=== PATIENT | male | born 1955 | race Caucasian/White ===

== ENCOUNTER → 2017-02-21 | Outpatient (CLI) | payer BC ==
[2016-05-12 11:29] VITALS: BP 138/76
[~2017-02-21] MED LIST: AMIO200T2 PO; CARV12.52 PO; CARV3.12 PO; CARV6.252 PO; CRESTOR40 MG PO; DRON400T PO; FURO40TA4 PO; GLUC100018 PO; LOSA25TA4 PO; MULT-246 PO; OMEG1CAP6 PO; REGADENOSON 0.4 MG/5 ML DISP.SYRIN. IV ONE; RIVA10TA PO; SPIR25TA PO
--- NOTE | 2017-02-21 12:54 | RAD ---
APPROVED REPORT Test Type: Pharmacological Stress Nurse/Tech: Makenzie Oneill R.N. Test Indications: chronic systolic heart failure Cardiac History: Hypertension, Family history, A fib, defib/PM Medications: See Electronic Medical Record Medical History: See Electronic Medical Record Resting ECG: Paced Resting Heart Rate: 76 bpm Resting Blood Pressure: 142/85mmHg Pretest Chest Pain: No chest pain Nurse/Tech Notes S1S2, lungs sound clear Consent: The procedure was explained to the patient in lay terms. Informed consent was witnessed. Brijesh eout was entered into [employer]. History and Stress Test performed by Makenzie Oneill R.N. Pharm. Details Pharmacologic stress testing was performed using 0.4mg per 5ml of regadenoson given intravenously ove r 7-10 seconds. Stress Symptoms Dyspnea POST EXERCISE Reason for Termination: Infusion complete Max HR: 109 bpm Max Blood Pressure: 152/86mmHg Blood Pressure response to exercise: Normal blood pressure response during stress. Chest Pain: No. Arrhythmia: No. ST Change: No. INTERPRETATION Stress EKG Conclusion: Baseline EKG showed ventricular paced rhythm. Nondiagnostic changes at peak st ress. No significant arrhythmias. Imaging Protocol IMAGE PROTOCOL: Rest Tc-99m/stress Tc-99m 1 day Rest: Stress: Viability: Radiopharm.Tc99m [id number] Sestamibi Dose12.5mCi 34mCi Duration 15min. 10min. Img Date 02/21/2017 02/21/2017 Inj-Img Teoh23xok. 60min. Rest Admin Site:IV - Left HandAdministrator:Salty Cohen RT (R)(N) Stress Admin Site: IV - Left HandAdministrator: Tomasa Tam RT (R)(N) STRESS DATA End Diast. Vol.163.0mlAv. Heart Rate79.0bpm End Syst. Vol.102.0mlCO Index BSA0.0L/min Myocardial Xsvz453.0gEject. Nrdytruh11.0% Stress Rates Pk. Fill Rate2.49EDV/secLVtime Pk. Fill 216.63msec Pk. Empty Rate2.50ESV/secLVtime Pk. Ggdgo027.38msec 07/30 Pk. Fill0.45EDV/sec Stress Scores Regional WT3.00Summed WT21.00 Regional WM1.00Summed WM22.00 LV Perfusion Scintigraphic images showed small fixed defect involving the apical wall with normal wall motion, pro bably attenuation artifact. No other fixed or reversible defects seen. Wall Motion Moderate left ventricle systolic dysfunction. Abnormal septal wall motion secondary to paced rhythm. Ejection fraction was calculated at 37%. LV Perf. Quant 17 Seg. SSS10.00 17 Seg. SRS13.00 17 Seg. SDS0.00 Stress Defect Extent (% LAD)51.30Rest Defect Extent (% LAD)56.30Rev. Defect Extent (% LAD)0.00 Stress Defect Extent (% LCX) 1.30Rest Defect Extent (% LCX)7.50Rev. Defect Extent (% LCX)0.00 Stress Defect Extent (% RCA)3.30Rest Defect Extent (% RCA)3.30Rev. Defect Extent (% RCA)0.00 Stress Defect Extent (% CHENCHO)26.10Rest Defect Extent (% CHENCHO)31.30Rev. Defect Extent (% CHENCHO)0.00 Conclusion 1. Regadenoson cardioisotope stress test did not show any definite evidence of ischemia or infarct. 2. Moderate left ventricle systolic dysfunction. Abnormal septal wall motion secondary to paced rhyth m. Ejection fraction was calculated at 37%. 3. Low to intermediate risk for cardiac events.
== END | disposition home or self-care (01) ==
LOC: NM 08:07
PROVIDERS: ATTEND Internal Medicine Cardiovascular Disease
DX: I50.22 Chronic systolic (congestive) heart failure (principal)
CPT/HCPCS: 78452; 93017; 96374; 96375; 96376; A9500; J2785

== ENCOUNTER → 2017-03-01 | Outpatient (CLI) | payer BC ==
[2016-05-12 11:29] VITALS: BP 138/76
[~2017-03-01] MED LIST changes: -REGADENOSON 0.4 MG/5 ML DISP.SYRIN. IV ONE
[2017-03-01 13:44] LABS: CALCIUM 8.4 mg/dL (8.5-10.1); CREATININE 0.9 mg/dL (0.7-1.3); GFR 86.4; POTASSIUM 3.9 mmol/L (3.5-5.1)
[2017-03-01 13:50] LABS: ALBUMIN 3.8 g/dL (3.4-5.0); ALBUMIN/GLOBULIN RATIO 1.1 (1.0-1.7); MAGNESIUM 2.1 mg/dL (1.8-2.4); TOTAL BILIRUBIN 0.6 mg/dL (0.2-1.0); TOTAL PROTEIN 7.3 g/dL (6.4-8.2)
== END | disposition home or self-care (01) ==
LOC: LAB 12:51
PROVIDERS: ATTEND Internal Medicine Cardiovascular Disease
DX: I50.22 Chronic systolic (congestive) heart failure (principal)
CPT/HCPCS: 36415; 80053; 83735

== ENCOUNTER → 2017-03-18 | Outpatient (CLI) | payer BC ==
[2016-05-12 11:29] VITALS: BP 138/76
[2017-03-18 11:56] LABS: CALCIUM 8.7 mg/dL (8.5-10.1); GFR 76.5; POTASSIUM 4.2 mmol/L (3.5-5.1)
== END | disposition home or self-care (01) ==
LOC: LAB 11:11
PROVIDERS: ATTEND Internal Medicine Cardiovascular Disease
DX: I11.0 Hypertensive heart disease with heart failure (principal); I50.22 Chronic systolic (congestive) heart failure; I48.0 Paroxysmal atrial fibrillation; Z95.810 Presence of automatic (implantable) cardiac defibrillator
CPT/HCPCS: 36415; 80048

== ENCOUNTER 2017-03-29 11:24 | Emergency (ER) | payer BC ==
[~2017-03-29] VITALS: Ht 172.7 cm; Wt 97.1 kg
--- NOTE | 2017-03-29 11:59 | PHYS DOC ---
Past Medical History Past Medical History: A-Fib, CHF, Hypertension, Other Additional Past Medical Histor: CARDIOMYOPATHY,V-TACH,CARDIAC ARREST Past Surgical History: Pacemaker, Other Additional Past Surgical Histo: RIGHT KNEE SX Alcohol Use: Occasionally Drug Use: None Adult General Chief Complaint Chief Complaint: DIZZY/LIGHT HEADED HPI HPI Patient is a 61 year old male who presents with complaints of dizziness, lightheadedness, the room spinning. Discussed the episode is similar to previous symptoms of peripheral vertigo when "bones in ear were dislodged". Patient has had a recent adjustment of his medications that was about 3 weeks ago. Patient has a pacemaker defibrillator he did not receive a shot. Patient did not experience any pain. Patient did feel nauseous, did not vomit. Patient did not syncopized. Patient has been his usual state of health no recent illnesses. At the time of the ED evaluation the patient is only feeling queasy there is no sensation of the room spinning. Review of Systems Review of Systems Constitutional: Denies fever or chills [] Eyes: Denies change in visual acuity, redness, or eye pain [] HENT: No headache or neck pain Respiratory: Denies cough or shortness of breath [] Cardiovascular: No additional information not addressed in HPI [] GI: Denies abdominal pain, no vomiting. Yes to nausea Musculoskeletal: Denies back pain or joint pain [] Integument: Denies rash or skin lesions [] Neurologic: Denies headache, focal weakness or sensory changes [] Current Medications Current Medications Current Medications Medications (Trade) Dose Ordered Sig/Steven Start Time Stop Time Status Last Admin Dose Admin Meclizine HCl (Antivert) 25 mg 1X ONCE 03/29/17 12:45 03/29/17 12:46 DC 03/29/17 12:51 25 MG Ondansetron HCl (Zofran) 4 mg 1X ONCE 03/29/17 16:15 03/29/17 16:16 03/29/17 16:04 4 MG Sodium Chloride 250 ml @ 250 mls/hr 1X ONCE 03/29/17 12:15 03/29/17 13:14 DC 03/29/17 12:43 250 MLS/HR Allergies Allergies Allergies Coded Allergies Type Severity Reaction Last Updated Verified No Known Drug Allergies 03/29/17 No Physical Exam Physical Exam Constitutional: Well developed, well nourished, mild distress, non-toxic appearance. [] HENT: Normocephalic, atraumatic, bilateral external ears normal, oropharynx dry , no oral exudates, nose normal. No nystagmus Eyes: EOMI, conjunctiva normal, no discharge. [] Neck: Normal range of motion, no tenderness, supple, no stridor. No JVD. Cardiovascular:Heart rate regular rhythm, no murmur, equal pulses, normal perfusion Lungs & Thorax: Bilateral breath sounds clear to auscultation, no tachypnea Abdomen: Bowel sounds normal, soft, no tenderness, no masses, no pulsatile masses. [] Skin: Warm, dry, no erythema, no rash. [] Back: Normal range of motion Extremities: No tenderness, no cyanosis, no DVT, ROM intact, no edema. [] Neurologic: Alert and oriented X 3, normal motor function, no focal deficits noted. [] Psychologic: Affect normal, judgement normal, mood normal. [] Current Patient Data Vital Signs Vital Signs Date Time Temp Pulse Resp B/P (MAP) Pulse Ox O2 Delivery O2 Flow Rate FiO2 03/29/17 15:29 74 15 134/72 (92) 97 Room Air 03/29/17 11:30 97.8 97.8 Lab Values Laboratory Tests Test 03/29/17 12:05 White Blood Count 4.4 x10^3/uL (4.0-11.0) Red Blood Count 4.42 x10^6/uL (4.30-5.70) Hemoglobin 13.9 g/dL (13.0-17.5) Hematocrit 40.4 % (39.0-53.0) Mean Corpuscular Volume 91 fL (79-100) Mean Corpuscular Hemoglobin 32 pg (25-35) Mean Corpuscular Hemoglobin Concent 35 g/dL (31-37) Red Cell Distribution Width 12.8 % (11.5-14.5) Platelet Count 141 x10^3/uL (140-400) Neutrophils (%) (Auto) 56 % (31-73) Lymphocytes (%) (Auto) 29 % (24-48) Monocytes (%) (Auto) 10 % (0-9) H Eosinophils (%) (Auto) 4 % (0-3) H Basophils (%) (Auto) 1 % (0-3) Neutrophils # (Auto) 2.4 x10^3uL (1.8-7.7) Lymphocytes # (Auto) 1.3 x10^3/uL (1.0-4.8) Monocytes # (Auto) 0.5 x10^3/uL (0.0-1.1) Eosinophils # (Auto) 0.2 x10^3/uL (0.0-0.7) Basophils # (Auto) 0.0 x10^3/uL (0.0-0.2) Sodium Level 141 mmol/L (136-145) Potassium Level 3.9 mmol/L (3.5-5.1) Chloride Level 105 mmol/L (98-107) Carbon Dioxide Level 26 mmol/L (21-32) Anion Gap 10 (6-14) Blood Urea Nitrogen 15 mg/dL (8-26) Creatinine 0.9 mg/dL (0.7-1.3) Estimated GFR (Cockcroft-Gault) 86.4 Glucose Level 146 mg/dL (70-99) H Calcium Level 9.0 mg/dL (8.5-10.1) Magnesium Level 1.9 mg/dL (1.8-2.4) Total Bilirubin 0.5 mg/dL (0.2-1.0) Direct Bilirubin 0.1 mg/dL (0.0-0.2) Aspartate Amino Transferase (AST) 24 U/L (15-37) Alanine Aminotransferase (ALT) 35 U/L (16-63) Alkaline Phosphatase 61 U/L (46-116) Troponin I Quantitative < 0.017 ng/mL (0.000-0.055) Total Protein 7.3 g/dL (6.4-8.2) Albumin 3.8 g/dL (3.4-5.0) Laboratory Tests 03/29/17 12:05 Laboratory Tests 03/29/17 12:05 EKG EKG 1136 73, no stemi, paced rhythm[] Radiology/Procedures Radiology/Procedures [] Course & Med Decision Making Course & Med Decision Making Pertinent Labs and Imaging studies reviewed. (See chart for details) pt states symptoms similar to previous exacerbations of paroxysmal vertigo. Pt request Yessi maneuver which is performed today by with assistance of nursing. Changes in head position did reproduced symptoms which eventually resolved. Yessi maneuver performed, total time 10 minutes. Pt tolerated procedure well. 1614 pt feels improved and requests discharge home [] Dragon Disclaimer Dragon Disclaimer This electronic medical record was generated, in whole or in part, using a voice recognition dictation system. Departure Departure Impression: Primary Impression: Vertigo Disposition: 01 HOME, SELF-CARE Condition: IMPROVED Referrals: AKOSUA MCMANUS (PCP) please follow up with your pcp for recheck Patient Instructions: Benign Positional Vertigo Denys BILLY MD Mar 29, 2017 11:59
[2017-03-29] MEDS ORDERED: IV NORMAL SALINE 250ML 250 ML IV ONE (12:15)
[2017-03-29 12:16] LABS: BASO % 1 % (0-3); EOS % 4 % (0-3); HEMATOCRIT 40.4 % (39.0-53.0); HEMOGLOBIN 13.9 g/dL (13.0-17.5); LYMPH # 1.3 x10^3/uL (1.0-4.8); LYMPH % 29 % (24-48); MEAN CORPUSCULAR HEMOGLOBIN 32 pg (25-35); MEAN CORPUSCULAR HGB CONC 35 g/dL (31-37); MEAN CORPUSCULAR VOLUME 91 fL (79-100); MONO % 10 % (0-9); NEUT % 56 % (31-73); PLATELET COUNT 141 x10^3/uL (140-400); RED BLOOD COUNT 4.42 x10^6/uL (4.30-5.70); RED CELL DISTRIBUTION WIDTH 12.8 % (11.5-14.5); WHITE BLOOD COUNT 4.4 x10^3/uL (4.0-11.0)
--- NOTE | 2017-03-29 12:18 | EKG ---
[facility] [address] [place] [address] Test Date: 2017-03-29 Test Time: 11:29:18 Pat Name: ARLEEN LUCAS Department: Room: Gender: M Environmental Programs Manager: : 1955 Requested By: Denys BILLY Order Number: [id number] Reading MD: Jarocho Iqbal Measurements Intervals [place] Rate: 73 P: 34 IA: 162 QRS: -30 QRSD: 124 T: 83 QT: 432 QTc: 480 Interpretive Statements SR V-PACED Electronically Signed On 04-01-2017 10:03:54 CDT by Jarocho Iqbal
[2017-03-29] MEDS ORDERED: MECLIZINE HCL 12.5 MG TABLET. PO ONE (12:45)
[2017-03-29] MEDS ORDERED: ONDANSETRON PF 4 MG/2 ML VIAL. IV ONE ×2 (12:45→16:15)
[2017-03-29 12:48] LABS: CREATININE 0.9 mg/dL (0.7-1.3); GFR 86.4; POTASSIUM 3.9 mmol/L (3.5-5.1)
[2017-03-29 12:54] LABS: ALBUMIN 3.8 g/dL (3.4-5.0); DIRECT BILIRUBIN 0.1 mg/dL (0.0-0.2); MAGNESIUM 1.9 mg/dL (1.8-2.4); TOTAL BILIRUBIN 0.5 mg/dL (0.2-1.0); TOTAL PROTEIN 7.3 g/dL (6.4-8.2)
--- NOTE | 2017-03-29 12:59 | RAD ---
EXAM: CHEST 1 VIEW History: Congestive heart failure COMPARISON: 05/10/2016 TECHNIQUE: Single portable radiograph of the chest FINDINGS: The cardiac silhouette is unremarkable. The lungs are clear bilaterally. The costophrenic sulci are clear and well demarcated. Left-sided cardiac pacer ICD again identified. IMPRESSION: No radiographic evidence of an acute cardiopulmonary process.
[2017-03-29 16:30] VITALS: BP 131/71
== END 2017-03-29 16:40 | disposition home or self-care (01) ==
LOC: ER 11:24
DX: R42 Dizziness and giddiness (principal); R11.0 Nausea; I11.0 Hypertensive heart disease with heart failure; I50.9 Heart failure, unspecified; I48.91 Unspecified atrial fibrillation; Z86.74 Personal history of sudden cardiac arrest; Z95.810 Presence of automatic (implantable) cardiac defibrillator
CPT/HCPCS: 36415; 71010; 80048; 80076; 83735; 84484; 85025; 93005; 96361; 96374; 96376; 99285; J2405; J7050; J8597; J7030